=== PATIENT | female | born 1955 | race Caucasian/White ===

== ENCOUNTER → 2022-06-16 | Day surgery (SDC) | payer MEDICARE, OTHER ==
[~2022-06-16] VITALS: Ht 170.2 cm; Wt 82.5 kg
[~2022-06-16] MED LIST: ADALAT CC30 MG PO; EPIPEN0.3 MG/0.3 IJ; FOLTANX TABLET1 EACH PO; GABAPENTIN800 MG PO; ICOSAPENT ETHYL1 GM PO; LEVEMIR VI100 UNITS/ SC; LINZESS72 MCG PO; METFORMIN HCL500 MG PO; MOVE FREE JOIN1 EACH PO; NOVOLOG VI100 UNIT/1 SQ; PRILOSEC20 MG PO; PRINIVIL20 MG PO; PROBIOTIC1 EACH PO; SAVELLA50 MG PO; STOOL SOFTENER100 M1 PO; SYMBICORT 80-10.2 GM INH; THEOPHYLLINE 3300 MG PO; TRAMADOL HCL50 MG PO; TRAZODONE 100M100 MG PO; TRIAMCINOLONE454 GM TOP; TRILEPTAL150 MG PO; ULTRAM50 MG PO; XYZAL5 MG PO; [UNRECOGNIZED DRUG - OTHER] PO
[2022-06-16 07:21] LABS: BUN/CREAT RATIO (CALC) 16.8 RATIO; CREATININE 1.01 mg/dL (0.51-0.95); POTASSIUM 3.9 mmol/L (3.5-5.1)
== END | disposition home or self-care (01) ==
LOC: FAS 06:12
PROVIDERS: Anesthesiology
DX: S70.351A Superficial foreign body, right thigh, initial encounter (principal); I10 Essential (primary) hypertension; E11.9 Type 2 diabetes mellitus without complications; J45.909 Unspecified asthma, uncomplicated; K21.9 Gastro-esophageal reflux disease without esophagitis; Z79.4 Long term (current) use of insulin; Z79.899 Other long term (current) drug therapy; Z88.0 Allergy status to penicillin; Z88.1 Allergy status to other antibiotic agents; Z88.2 Allergy status to sulfonamides; Z88.5 Allergy status to narcotic agent; Z88.6 Allergy status to analgesic agent; Z88.8 Allergy status to other drugs, medicaments and biological substances; E78.00 Pure hypercholesterolemia, unspecified; M06.9 Rheumatoid arthritis, unspecified; X58.XXXA Exposure to other specified factors, initial encounter
CPT/HCPCS: 36415; 76000; 80048; 82962; J1885; J2250; J2704; J7120

== ENCOUNTER → 2022-07-21 | Day surgery (SDC) | payer MEDICARE, OTHER ==
[~2022-07-21] VITALS: Ht 170.2 cm; Wt 82.5 kg
[~2022-07-21] MED LIST changes: +CEPHALEXIN500 MG PO; +COREG12.5 MG PO
[2022-07-21 07:56] LABS: BUN/CREAT RATIO (CALC) 17.1 RATIO; CREATININE 0.82 mg/dL (0.51-0.95); POTASSIUM 3.8 mmol/L (3.5-5.1)
== END | disposition home or self-care (01) ==
LOC: FAS 06:39
PROVIDERS: Anesthesiology
DX: S70.351A Superficial foreign body, right thigh, initial encounter (principal); Y83.9 Surgical procedure, unspecified as the cause of abnormal reaction of the patient, or of later complication, without mention of misadventure at the time of the procedure; M06.9 Rheumatoid arthritis, unspecified; J45.909 Unspecified asthma, uncomplicated; K21.9 Gastro-esophageal reflux disease without esophagitis; I10 Essential (primary) hypertension; E11.9 Type 2 diabetes mellitus without complications; Z88.1 Allergy status to other antibiotic agents; Z88.0 Allergy status to penicillin; Z88.2 Allergy status to sulfonamides; Z88.8 Allergy status to other drugs, medicaments and biological substances
CPT/HCPCS: 36415; 76000; 80048; J2250; J2370; J2405; J2704; J7120